=== PATIENT | male | born 1945 ===

== ENCOUNTER 2020-06-07 13:56 | Outpatient (REF) | payer MEDICARE, OTHER, SELFPAY ==
[2020-06-11 15:26] LABS: SARS-CoV-2 RNA Undetected (Undetected); SARS-CoV-2 Specimen Source Nasal
== END 2020-06-07 14:16 ==
LOC: NCHCN 13:56
PROVIDERS: PCP Internal Medicine; Visit Provider Internal Medicine
DX: Z20.828 Contact with and (suspected) exposure to other viral communicable diseases (principal)
CPT/HCPCS: U0003

== ENCOUNTER 2020-09-24 22:31 | Outpatient (REF) | payer MEDICARE, OTHER, SELFPAY ==
[2020-09-24 22:04] LABS: Hemoglobin A1C 5.8 % (<5.7)
[2020-09-24 22:06] LABS: Albumin 4.2 g/dL (3.4-5.0); Anion Gap 7.8 mmol/L (3-11); BUN 22 mg/dL (7-18); CO2 27.2 mmol/L (21.0-32.0); CREATININE 0.8 mg/dL (0.70-1.30); Calcium 9.2 mg/dL (8.5-10.1); Chloride 104 mmol/L (98-107); Glucose 113 mg/dL (74-106); Potassium 4.2 mmol/L (3.5-5.1); Sodium 139 mmol/L (136-145)
[2020-09-24 22:25] LABS: ALT 27 U/L (16-63); AST 23 U/L (15-37); Alkaline Phosphatase 56 U/L (46-116); Bilirubin, Total 0.8 mg/dL (0.2-1.0); Calculated LDL 113 mg/dL (<100); Cholesterol 206 mg/dL (<200); HDL Cholesterol 80 mg/dL (40-60); Total Protein 7.5 g/dL (6.4-8.2); Triglyceride 69 mg/dL (<150)
[2020-09-25 09:16] LABS: HCT 52.8 % (40.0-50.0); HGB 17.7 g/dL (13.5-17.5); MCH 31.6 pg (27.0-33.0); MCHC 33.5 % (32.0-36.0); MCV 94.1 fL (80-95); MPV 10.4 fL (8.0-11.0); Platelet Count 206 10^3/uL (130-400); RBC 5.61 10^6/uL (4.36-5.78); RDW 13.3 % (11.8-14.1); RDW-SD 46.5 fL
== END 2020-09-24 22:32 | disposition home or self-care (01) ==
LOC: NCHCN 22:31
PROVIDERS: PCP Internal Medicine; Visit Provider Family Medicine
DX: E66.3 Overweight; R73.03 Prediabetes; R03.0 Elevated blood-pressure reading, without diagnosis of hypertension
CPT/HCPCS: 80053; 80061; 85027; 83036

== ENCOUNTER 2022-09-30 15:06 | Outpatient (REF) | payer MEDICARE, OTHER, SELFPAY ==
[2022-09-30 21:27] LABS: Anion Gap 9.3 mmol/L (3-11); BUN 12 mg/dL (7-18); CO2 25.7 mmol/L (21.0-32.0); CREATININE 0.8 mg/dL (0.70-1.30); Calcium 9.5 mg/dL (8.5-10.1); Chloride 103 mmol/L (98-107); Estimated GFR 91.72 (mL/min/1.73m2); Glucose 103 mg/dL (74-106); Potassium 4.5 mmol/L (3.5-5.1); Sodium 138 mmol/L (136-145)
[2022-09-30 21:31] LABS: Hemoglobin A1C 5.9 % (<5.7)
== END 2022-09-30 15:07 | disposition home or self-care (01) ==
LOC: NCHCN 15:06
PROVIDERS: PCP Internal Medicine; Visit Provider Family Medicine
DX: E74.01 von Gierke disease (principal); I10 Essential (primary) hypertension; R73.03 Prediabetes; M54.16 Radiculopathy, lumbar region; Z00.00 Encounter for general adult medical examination without abnormal findings
CPT/HCPCS: 80048; 83036

== ENCOUNTER 2025-05-02 16:24 | Outpatient (REF) | payer MEDICARE, SELFPAY ==
[2025-05-02 21:13] LABS: HCT 48.6 % (40.0-50.0); HGB 16.2 g/dL (13.5-17.5); MCH 30.1 pg (27.0-33.0); MCHC 33.3 % (32.0-36.0); MCV 90 fL (80-95); MPV 10.2 fL (8.0-11.0); Platelet Count 226 10^3/uL (130-400); RBC 5.38 10^6/uL (4.36-5.78); RDW 13.2 % (11.8-14.1); RDW-SD 43.5 fL; WBC 9.25 10^3/uL (4.4-10.8)
[2025-05-02 22:12] LABS: Anion Gap 9.1 mmol/L (3-11); BUN 20 mg/dL (7-18); CO2 24.9 mmol/L (21.0-32.0); Calcium 10.0 mg/dL (8.5-10.1); Chloride 104 mmol/L (98-107); Estimated GFR 77.04 (mL/min/1.73m2); Glucose 106 mg/dL (74-106); Potassium 4.4 mmol/L (3.5-5.1); Sodium 138 mmol/L (136-145); TSH (W/Ref FT4) 1.34 uIU/mL (0.36-3.74); Vitamin B12 768 pg/mL (193-986)
== END 2025-05-02 16:25 | disposition home or self-care (01) ==
LOC: NCHCN 16:24
PROVIDERS: PCP Internal Medicine; Visit Provider Family Medicine
DX: I48.0 Paroxysmal atrial fibrillation (principal)
CPT/HCPCS: 80048; 85027; 82607; 84443